=== PATIENT | male | born 1995 | race Caucasian/White ===

== ENCOUNTER 2025-03-23 16:40 | Emergency (ER) | payer BC ==
[~2025-03-23] VITALS: Ht 175.3 cm; Wt 67.0 kg
[2025-03-23] MEDS ORDERED: TETRACAINE HCL 0.5% 4 ML BTL OS SCH (17:15)
[2025-03-23 19:12] VITALS: BP 124/72
== END 2025-03-23 19:12 | disposition home or self-care (01) ==
LOC: ED 16:40
DX: H21.562 Pupillary abnormality, left eye (principal); Z88.1 Allergy status to other antibiotic agents
CPT/HCPCS: 70450; 99284-25